=== PATIENT | male | born 1930 | race Caucasian/White ===

== ENCOUNTER 2017-09-18 17:20 | Emergency (ER) | payer MEDICARE, OTHER ==
[2017-09-18] MEDS ORDERED: Lidocaine 1% w/Epinephrine 1:100K 30 ML VIAL ONE (17:32)
[2017-09-18] MEDS ORDERED: Lidocaine Viscous Sol 2% 15 ml UD Cup ONE (17:38)
--- NOTE | 2017-09-18 19:30 | CT ---
CT HEAD NONCONTRAST: History: Fall, head injury. FINDINGS: There is no evidence of acute intracranial hemorrhage or infarct. 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 There is no mass effect or shift of midline structures. Large scalp laceration apparent at the posterior vertex of the skull. IMPRESSION: No acute intracranial abnormalities are demonstrated. POS: [facility]
== END 2017-09-18 19:00 | disposition home or self-care (01) ==
LOC: BURERS 17:20
DX: S01.01XA Laceration without foreign body of scalp, initial encounter (principal); Z85.51 Personal history of malignant neoplasm of bladder; Z87.891 Personal history of nicotine dependence; W01.10XA Fall on same level from slipping, tripping and stumbling with subsequent striking against unspecified object, initial encounter
CPT/HCPCS: 12031; 70450; J2001